=== PATIENT | female | born 1950 | race African-American/Black ===

== ENCOUNTER → 2017-02-07 | Outpatient (CLI) | payer OTHER, MEDICAID ==
[2017-02-07 19:35] LABS: CRYPTOSPORIDIUM PARVUM ANTIGEN NEGATIVE (NEGATIVE); GIARDIA LAMBLIA ANTIGEN NEGATIVE (NEGATIVE)
== END ==
LOC: LAB 16:02
PROVIDERS: ATTEND Internal Medicine Gastroenterology
DX: K59.1 Functional diarrhea (principal); B96.89 Other specified bacterial agents as the cause of diseases classified elsewhere
CPT/HCPCS: 87045; 87205; 87328; 87329; 87336; 87427; 87493; 87899

== ENCOUNTER → 2017-03-14 | Outpatient (CLI) | payer OTHER, MEDICAID ==
[2017-03-14 10:37] LABS: BASOPHILS # (AUTO) 0.1 X10^3/uL (0.0-0.1); BASOPHILS % (AUTO) 0.9 % (0.2-1.0); EOSINOPHILS # (AUTO) 0.2 x10^3/uL (0.0-0.2); EOSINOPHILS % (AUTO) 1.8 % (0.9-2.9); HEMATOCRIT 38.7 % (36.0-47.0); HEMOGLOBIN 13.3 g/dL (12.0-16.0); LYMPHOCYTES # (AUTO) 2.6 X10^3/uL (1.3-2.9); LYMPHOCYTES % (AUTO) 28.6 % (21.0-51.0); MEAN CORPUSCULAR HEMOGLOBIN 28.3 pg (27.0-34.0); MEAN CORPUSCULAR HGB CONC 34.4 g/dL (33.0-35.0); MEAN CORPUSCULAR VOLUME 82.4 fL (80.0-100.0); MEAN PLATELET VOLUME 9.3 fL (7.4-11.0); MONOCYTES # (AUTO) 0.6 x10^3/uL (0.3-0.8); MONOCYTES % (AUTO) 6.9 % (0.0-13.0); NEUTROPHILS # (AUTO) 5.7 x10^3/uL (2.2-4.8); NEUTROPHILS % (AUTO) 61.8 % (42.0-75.0); PLATELET COUNT 163 X10^3/uL (150.0-450.0); RED CELL DISTRIBUTION WIDTH 14.5 % (11.6-16.5); WHITE BLOOD COUNT 9.2 X10^3/uL (3.6-10.0)
[2017-03-14 10:42] LABS: HEMOGLOBIN A1C 6.9 % (4.5-6.2)
[2017-03-14 10:45] LABS: ALANINE AMINOTRANSFERASE 24 Units/L (12-78); ALBUMIN 3.6 g/dL (3.4-5.0); ALKALINE PHOSPHATASE 50 Units/L (46-116); ASPARTATE AMINO TRANSFERASE 17 Units/L (15-37); BLOOD UREA NITROGEN 21 mg/dL (7-18); CALCIUM 8.9 mg/dL (8.5-10.1); CARBON DIOXIDE 30.2 mmol/L (21-32); CHLORIDE 110 mmol/L (98-107); CHOL/HDL RATIO 2.1 (0.0-5.0); CHOLESTEROL 74 mg/dL (0-200); CREATININE 1.22 mg/dL (0.55-1.02); GLUCOSE 59 mg/dL (65-99); HDL CHOLESTEROL 36 mg/dL (40-60); SODIUM 146 mmol/L (136-145); TOTAL PROTEIN 6.9 g/dL (6.4-8.2); TRIGLYCERIDES 43 mg/dL (0-150); eGFR BLACK RACES 56 (>60); eGFR NON BLACK RACES 47 (>60)
[2017-03-14 10:46] LABS: CREATININE,URINE 120.8 mg/dL (29-226); MICROALBUMIN,URINE 14.4 mg/L
== END ==
LOC: LAB 10:12
PROVIDERS: ATTEND Nurse Practitioner Family
DX: E78.4 Other hyperlipidemia (principal); E11.42 Type 2 diabetes mellitus with diabetic polyneuropathy
CPT/HCPCS: 36415; 80053; 80061; 82043; 83036; 85025

== ENCOUNTER → 2017-03-22 | Outpatient (CLI) | payer OTHER, MEDICAID ==
[2017-03-22 12:42] LABS: CRYPTOSPORIDIUM PARVUM ANTIGEN NEGATIVE (NEGATIVE); GIARDIA LAMBLIA ANTIGEN NEGATIVE (NEGATIVE)
== END ==
LOC: LAB 11:22
PROVIDERS: ATTEND Internal Medicine Gastroenterology
DX: K59.1 Functional diarrhea (principal); B96.89 Other specified bacterial agents as the cause of diseases classified elsewhere
CPT/HCPCS: 82705; 87045; 87205; 87328; 87329; 87336; 87427; 87493; 87899

== ENCOUNTER → 2017-06-13 | Outpatient (CLI) | payer OTHER, MEDICAID ==
[2017-06-13 14:06] LABS: BASOPHILS # (AUTO) 0.1 X10^3/uL (0.0-0.1); BASOPHILS % (AUTO) 0.9 % (0.2-1.0); EOSINOPHILS # (AUTO) 0.2 x10^3/uL (0.0-0.2); EOSINOPHILS % (AUTO) 2.5 % (0.9-2.9); HEMATOCRIT 35.7 % (36.0-47.0); HEMOGLOBIN 12.5 g/dL (12.0-16.0); LYMPHOCYTES # (AUTO) 3.4 X10^3/uL (1.3-2.9); LYMPHOCYTES % (AUTO) 37.2 % (21.0-51.0); MEAN CORPUSCULAR HEMOGLOBIN 28.4 pg (27.0-34.0); MEAN CORPUSCULAR VOLUME 81.2 fL (80.0-100.0); MEAN PLATELET VOLUME 9.7 fL (7.4-11.0); MONOCYTES # (AUTO) 0.7 x10^3/uL (0.3-0.8); MONOCYTES % (AUTO) 7.3 % (0.0-13.0); NEUTROPHILS # (AUTO) 4.8 x10^3/uL (2.2-4.8); NEUTROPHILS % (AUTO) 52.1 % (42.0-75.0); PLATELET COUNT 159 X10^3/uL (150.0-450.0); RED BLOOD COUNT 4.39 X10^6/uL (3.5-5.4); RED CELL DISTRIBUTION WIDTH 14.3 % (11.6-16.5); WHITE BLOOD COUNT 9.2 X10^3/uL (3.6-10.0)
[2017-06-13 14:14] LABS: CREATININE,URINE 59.86 mg/dL (29-226); MICROALBUMIN,URINE 7.6 mg/L
[2017-06-13 14:16] LABS: ALBUMIN 3.5 g/dL (3.4-5.0); BLOOD UREA NITROGEN 18 mg/dL (7-18); CALCIUM 9.6 mg/dL (8.5-10.1); CARBON DIOXIDE 33.3 mmol/L (21-32); CHLORIDE 106 mmol/L (98-107); CREATININE 1.24 mg/dL (0.55-1.02); GLUCOSE 68 mg/dL (65-99); SODIUM 144 mmol/L (136-145); eGFR BLACK RACES 55 (>60); eGFR NON BLACK RACES 46 (>60)
[2017-06-13 14:28] LABS: HEMOGLOBIN A1C 6.9 % (4.5-6.2)
== END ==
LOC: LAB 13:34
PROVIDERS: ATTEND Nurse Practitioner Family
DX: E11.42 Type 2 diabetes mellitus with diabetic polyneuropathy (principal); I10 Essential (primary) hypertension
CPT/HCPCS: 36415; 80048; 80069; 82043; 83036; 85025

== ENCOUNTER → 2017-06-27 | Outpatient (CLI) | payer OTHER, MEDICAID ==
--- NOTE | 2017-06-27 17:10 | US ---
HISTORY: Thyroid nodule Study: Ultrasound of thyroid none Comparison: None Technique: Multiple martínez scale images of the thyroid were obtained. Findings: The right lobe of the thyroid measures 4.7 x 1.3 x 1.8 cm. Multiple mostly solid appearing nodules a re noted within the right lobe of the thyroid. The largest nodule within the right lobe of the thyro id measures up to 2.2 cm in size and demonstrates internal vascular flow. The left lobe of the thyro id measures 2.8 x 1.0 x 1.4 cm. The isthmus measures 0.3 cm. IMPRESSION: 1. Right-sided thyroid nodules as noted above. Reported By:
== END ==
LOC: RAD 09:16
PROVIDERS: ATTEND Otolaryngology
DX: E04.1 Nontoxic single thyroid nodule (principal)
CPT/HCPCS: 76536

== ENCOUNTER → 2017-07-09 | Outpatient (CLI) | payer OTHER, MEDICAID ==
--- NOTE | 2017-07-09 14:47 | MG ---
HISTORY: SCREENING Comparison: 07/03/2016 FINDINGS: CC and MLO projections of the right and left breast were obtained. Scattered fibroglandular tissue is seen to be present. No significant architectural distortion, mass or clustered microcalcificatio ns can be observed to suggest malignancy. No skin thickening or nipple retraction is appreciated. No pathological lymphadenopathy can be identified. IMPRESSION: NO RADIOGRAPHIC EVIDENCE OF MALIGNANCY. ACR CATEGORY I - NEGATIVE EXAM. FOLLOW-UP EXAM 1 YEAR. Diagnostic CAD was utilized and reviewed. * 0 (ZERO) - ASSESSMENT INCOMPLETE; ADDITIONAL IMAGING IS NEEDED. * 1/ (ONE) - NEGATIVE. * 2/II (TWO) - BENIGN FINDINGS. * 3/III (THREE) - PROBABLY BENIGN FINDING; SHORT INTERVAL FOLLOW-UP SUGGESTED. * 4/IV (FOUR) - SUSPICIOUS ABNORMALITY; BIOPSY SHOULD BE CONSIDERED. * 5/V - HIGHLY SUSPICIOUS OF MALIGNANCY; BIOPSY SHOULD BE PERFORMED. A NEGATIVE X-RAY REPORT SHOULD NOT DELAY BIOPSY IF A DOMINANT OR CLINICALLY SUSPICIOUS MASS IS PRESENT; 4 TO 8 PERCENT OF CANCERS ARE NOT IDENTIFIED BY X-RAY. A NEG ATIVE REPORT MAY REINFORCE THE CLINICAL IMPRESSION. ADENOSIS AND DENSE BREASTS MAY OBSCURE AN UNDER LYING NEOPLASM. Reported By:
== END ==
LOC: RAD 10:17
PROVIDERS: ATTEND Nurse Practitioner Family
DX: Z12.31 Encounter for screening mammogram for malignant neoplasm of breast (principal)
CPT/HCPCS: 77067

== ENCOUNTER → 2017-08-01 | Outpatient (CLI) | payer OTHER, MEDICAID ==
[2017-08-01 11:34] LABS: CRYPTOSPORIDIUM PARVUM ANTIGEN NEGATIVE (NEGATIVE); GIARDIA LAMBLIA ANTIGEN NEGATIVE (NEGATIVE); STOOL FOR WBC NEGATIVE (NEGATIVE)
== END ==
LOC: LAB 09:18
PROVIDERS: ATTEND Internal Medicine Gastroenterology
DX: R59.1 Generalized enlarged lymph nodes (principal)
CPT/HCPCS: 82705; 83630; 87045; 87328; 87329; 87336; 87427; 87493; 87899

== ENCOUNTER → 2017-09-15 | Outpatient (CLI) | payer OTHER, MEDICAID ==
[2017-09-15 10:30] LABS: BASOPHILS % (AUTO) 0.5 % (0.2-1.0); EOSINOPHILS # (AUTO) 0.2 x10^3/uL (0.0-0.2); EOSINOPHILS % (AUTO) 1.8 % (0.9-2.9); HEMATOCRIT 35.2 % (36.0-47.0); HEMOGLOBIN 12.4 g/dL (12.0-16.0); LYMPHOCYTES % (AUTO) 23.7 % (21.0-51.0); MEAN CORPUSCULAR HGB CONC 35.2 g/dL (33.0-35.0); MEAN CORPUSCULAR VOLUME 82.3 fL (80.0-100.0); MEAN PLATELET VOLUME 10.3 fL (7.4-11.0); MONOCYTES # (AUTO) 0.6 x10^3/uL (0.3-0.8); MONOCYTES % (AUTO) 7.1 % (0.0-13.0); NEUTROPHILS # (AUTO) 5.6 x10^3/uL (2.2-4.8); NEUTROPHILS % (AUTO) 66.9 % (42.0-75.0); PLATELET COUNT 139 X10^3/uL (150.0-450.0); RED BLOOD COUNT 4.28 X10^6/uL (3.5-5.4); RED CELL DISTRIBUTION WIDTH 14.6 % (11.6-16.5); WHITE BLOOD COUNT 8.4 X10^3/uL (3.6-10.0)
[2017-09-15 10:39] LABS: HEMOGLOBIN A1C 7.2 % (4.5-6.2)
[2017-09-15 10:47] LABS: ALANINE AMINOTRANSFERASE 42 Units/L (12-78); ALBUMIN 3.7 g/dL (3.4-5.0); ALKALINE PHOSPHATASE 68 Units/L (46-116); ASPARTATE AMINO TRANSFERASE 31 Units/L (15-37); BLOOD UREA NITROGEN 32 mg/dL (7-18); CALCIUM 9.6 mg/dL (8.5-10.1); CARBON DIOXIDE 28.6 mmol/L (21-32); CHLORIDE 111 mmol/L (98-107); CHOL/HDL RATIO 2.1 (0.0-5.0); CHOLESTEROL 85 mg/dL (0-200); CREATININE 1.23 mg/dL (0.55-1.02); HDL CHOLESTEROL 41 mg/dL (40-60); SODIUM 147 mmol/L (136-145); T4 (THYROXINE) 8.4 ug/dL (4.7-13.3); TRIGLYCERIDES 45 mg/dL (0-150); TSH (3RD GENERATION) 2.002 uIU/mL (0.358-3.74); eGFR BLACK RACES 56 (>60); eGFR NON BLACK RACES 46 (>60)
[2017-09-15 11:28] LABS: CREATININE,URINE 160.61 mg/dL (29-226)
== END ==
LOC: LAB 09:20
PROVIDERS: ATTEND Nurse Practitioner Family
DX: E11.42 Type 2 diabetes mellitus with diabetic polyneuropathy (principal); E78.4 Other hyperlipidemia; E04.1 Nontoxic single thyroid nodule
CPT/HCPCS: 36415; 80053; 80061; 82043; 83036; 84436; 84443; 85025

== ENCOUNTER → 2017-12-10 | Outpatient (CLI) | payer OTHER, MEDICAID ==
[2017-12-10 14:17] LABS: CRYPTOSPORIDIUM PARVUM ANTIGEN NEGATIVE (NEGATIVE); GIARDIA LAMBLIA ANTIGEN NEGATIVE (NEGATIVE); STOOL FOR WBC POSITIVE (NEGATIVE)
== END ==
LOC: LAB 12:28
PROVIDERS: ATTEND Internal Medicine Gastroenterology
DX: K59.1 Functional diarrhea (principal); K64.0 First degree hemorrhoids
CPT/HCPCS: 82270; 82705; 83630; 87045; 87328; 87329; 87336; 87427; 87493; 87899

== ENCOUNTER → 2017-12-13 | Outpatient (CLI) | payer OTHER, MEDICAID ==
[2017-12-13 12:06] LABS: BASOPHILS # (AUTO) 0.1 X10^3/uL (0.0-0.1); BASOPHILS % (AUTO) 0.7 % (0.2-1.0); EOSINOPHILS # (AUTO) 0.2 x10^3/uL (0.0-0.2); EOSINOPHILS % (AUTO) 1.9 % (0.9-2.9); HEMATOCRIT 35.8 % (36.0-47.0); HEMOGLOBIN 12.5 g/dL (12.0-16.0); LYMPHOCYTES # (AUTO) 2.3 X10^3/uL (1.3-2.9); LYMPHOCYTES % (AUTO) 26.7 % (21.0-51.0); MEAN CORPUSCULAR HEMOGLOBIN 28.4 pg (27.0-34.0); MEAN CORPUSCULAR HGB CONC 34.8 g/dL (33.0-35.0); MEAN CORPUSCULAR VOLUME 81.6 fL (80.0-100.0); MEAN PLATELET VOLUME 10.6 fL (7.4-11.0); MONOCYTES # (AUTO) 0.7 x10^3/uL (0.3-0.8); MONOCYTES % (AUTO) 8.4 % (0.0-13.0); NEUTROPHILS # (AUTO) 5.4 x10^3/uL (2.2-4.8); NEUTROPHILS % (AUTO) 62.3 % (42.0-75.0); PLATELET COUNT 146 X10^3/uL (150.0-450.0); RED BLOOD COUNT 4.38 X10^6/uL (3.5-5.4); RED CELL DISTRIBUTION WIDTH 13.9 % (11.6-16.5); WHITE BLOOD COUNT 8.7 X10^3/uL (3.6-10.0)
[2017-12-13 12:16] LABS: CREATININE,URINE 107.26 mg/dL (29-226); MICROALBUMIN,URINE 7.5 mg/L
[2017-12-13 12:22] LABS: ALANINE AMINOTRANSFERASE 27 Units/L (12-78); ALBUMIN 3.4 g/dL (3.4-5.0); ALKALINE PHOSPHATASE 62 Units/L (46-116); ASPARTATE AMINO TRANSFERASE 16 Units/L (15-37); BLOOD UREA NITROGEN 28 mg/dL (7-18); CARBON DIOXIDE 29.2 mmol/L (21-32); CHLORIDE 109 mmol/L (98-107); CHOL/HDL RATIO 1.9 (0.0-5.0); CHOLESTEROL 70 mg/dL (0-200); HDL CHOLESTEROL 36 mg/dL (40-60); SODIUM 144 mmol/L (136-145); TOTAL PROTEIN 6.3 g/dL (6.4-8.2); TRIGLYCERIDES 56 mg/dL (0-150); eGFR BLACK RACES 48 (>60); eGFR NON BLACK RACES 40 (>60)
[2017-12-13 12:33] LABS: HEMOGLOBIN A1C 7.2 %
== END | disposition home or self-care (01) | DRG 642 ==
LOC: LAB 11:39
PROVIDERS: ATTEND Nurse Practitioner Family
DX: E78.4 Other hyperlipidemia (principal); I10 Essential (primary) hypertension; E11.42 Type 2 diabetes mellitus with diabetic polyneuropathy
CPT/HCPCS: 36415; 80053; 80061; 82043; 83036; 85025

== ENCOUNTER 2017-12-27 07:07 | Day surgery (SDC) | payer OTHER, MEDICAID ==
[2017-12-27] MEDS ORDERED: D5 LR 1000 ML 1,000 ML IV ONE (07:27)
[2017-12-27] MEDS ORDERED: DIPRIVAN VIAL 20 ML ONE (08:24)
[2017-12-27 09:30] VITALS: BP 127/64
== END 2017-12-27 09:20 | disposition home or self-care (01) ==
LOC: SURG1 07:07
PROVIDERS: ATTEND Internal Medicine Gastroenterology
PROC: 0DBL8ZX Excision of Transverse Colon, Via Natural or Artificial Opening Endoscopic, Diagnostic (ICD-10-PCS; principal; 2017-12-27 07:30)
PROC: 0DJD8ZZ Inspection of Lower Intestinal Tract, Via Natural or Artificial Opening Endoscopic (ICD-10-PCS; principal; 2017-12-27 07:30)
DX: R19.4 Change in bowel habit (principal); K63.5 Polyp of colon; K64.0 First degree hemorrhoids; Z86.010 Personal history of colon polyps
CPT/HCPCS: A4217; J3490; J7120

== ENCOUNTER → 2018-03-14 | Outpatient (CLI) | payer OTHER, MEDICAID ==
[2018-03-14 12:14] LABS: CRYPTOSPORIDIUM PARVUM ANTIGEN NEGATIVE (NEGATIVE); GIARDIA LAMBLIA ANTIGEN NEGATIVE (NEGATIVE)
== END ==
LOC: LAB 10:55
PROVIDERS: ATTEND Nurse Practitioner Family
DX: K59.1 Functional diarrhea (principal)
CPT/HCPCS: 82274; 87045; 87328; 87329; 87336; 87338; 87427; 87449; 87493